=== PATIENT | male | born 1980 | race Caucasian/White ===

== ENCOUNTER 2021-10-22 11:46 | Emergency (ER) | payer MEDICAID, OTHER ==
[~2021-10-22] VITALS: Ht 195.6 cm; Wt 106.6 kg
[2021-10-22 12:10] VITALS: BP 132/76
== END 2021-10-22 12:53 | disposition home or self-care (01) ==
LOC: ER 11:46
DX: L25.9 Unspecified contact dermatitis, unspecified cause (principal); F31.9 Bipolar disorder, unspecified; F17.210 Nicotine dependence, cigarettes, uncomplicated; Z76.0 Encounter for issue of repeat prescription

== ENCOUNTER 2021-10-28 15:14 | Emergency (ER) | payer MEDICAID ==
[~2021-10-28] VITALS: Ht 195.6 cm; Wt 106.6 kg
[2021-10-28 16:05] VITALS: BP 148/68
== END 2021-10-28 16:35 | disposition home or self-care (01) ==
LOC: ER 15:14
DX: F31.9 Bipolar disorder, unspecified (principal); F41.9 Anxiety disorder, unspecified; F17.210 Nicotine dependence, cigarettes, uncomplicated; Z76.0 Encounter for issue of repeat prescription

== ENCOUNTER 2022-03-21 07:59 | Emergency (ER) | payer MEDICAID ==
[~2022-03-21] VITALS: Ht 195.6 cm; Wt 104.3 kg
[2022-03-21 08:00] VITALS: BP 133/83
[2022-03-21] MEDS ORDERED: LIDOCAINE VISCOUS 2% 15ML UD PO ONE (08:15)
[2022-03-21] MEDS ORDERED: ONDANSETRON ODT 4 MG TAB PO ONE (08:15)
[2022-03-21] MEDS ORDERED: ALUM & MAG HYDROX-SIMETH LIQ(MAALOX) 30 ML PO ONE (08:15)
[2022-03-21] MEDS ORDERED: FAMOTIDINE 20 MG TAB PO ONE (08:15)
[2022-03-21] MEDS ORDERED: OMEP-434 PO (08:47)
== END 2022-03-21 08:49 | disposition home or self-care (01) ==
LOC: ER 07:59
DX: K21.9 Gastro-esophageal reflux disease without esophagitis (principal); F17.210 Nicotine dependence, cigarettes, uncomplicated; F12.10 Cannabis abuse, uncomplicated
CPT/HCPCS: 99284; Q0162